=== PATIENT | female | born 1985 | race African-American/Black ===

== ENCOUNTER 2017-01-13 12:34 | Emergency (ER) | payer SELFPAY ==
[~2017-01-13] VITALS: Ht 167.6 cm; Wt 107.1 kg
[2017-01-13 12:37] VITALS: BP 150/93
== END 2017-01-13 14:56 | disposition home or self-care (01) ==
LOC: ED 14:12
DX: O46.91 Antepartum hemorrhage, unspecified, first trimester (principal); Z3A.01 Less than 8 weeks gestation of pregnancy
CPT/HCPCS: 99281